=== PATIENT | male | born 1970 | race Caucasian/White ===

== ENCOUNTER 2024-10-04 00:51 | Day surgery (SDC) | payer OTHER, SELFPAY ==
[2024-09-20 13:37] VITALS: BMI 27.5
--- OUTSIDE RECORDS SUMMARY | 2024-10-04 00:55 | XMS_ITS | Clinical Summary ---
Author Organization [facility] [employer] Address [address] [place] [address] Care Team Providers Care Fish Egg Packer Name Role Phone Pietro Gonsalez MD Primary Care Provider [phone] Source Comments [facility] [employer],non-owned Affiliates and Associated Physician Practices is amultiple site organization consisting of ambulatory clinics and hospital sitesin [place], [place], [place] and [place]. This disclosure is being madepursuant to the Care Everywhere program and may not contain all information available regarding this patient. Last updated 18.[facility] Medications * Be aware that medications may not be up to date on this document. Alwaysverify current medications with the patient. Medication Sig Dispensed Refills Start Date End Date Status albuterol (PROVENTIL) 2 MG tablet Take by mouth. 07/27/2017 Active Family History Medical History Relation Name Comments Diabetes - Type 2 Paternal Grandmother Relation Name Status Comments Paternal Grandmother Social History Tobacco Use Types Packs/Day Years Used Date Smoking Tobacco: Former Cigarettes Q uit: 08/22/2002 Smokeless Tobacco: Never Alcohol Use Standard Drinks/Week Comments No 0 (1 standard drink = 0.6 oz pur e alcohol) Sex and Gender Information Value Date Recorded Sex Assigned at Not on file Gender Identity Not on file Sexual Orientation Not on file Last Filed Vital Signs Vital Sign Reading Time Taken Comments Blood Pressure 171/87 07/27/2017 9:33 AM BAR PORTER Pulse 84 07/27/2017 9:33 AM BAR PORTER Temperature 37.1 C (98.7 F) 07/27/2017 9:33 AM BAR PORTER Respiratory Rate 18 07/27/2017 9:33 AM BAR PORTER Oxygen Saturation 100% 07/27/2017 9:33 AM BAR PORTER Inhaled Oxygen Concentration - - Weight 109.3 kg (241 lb) 07/27/2017 9:33 AM BAR PORTER Height 190.5 cm (6' 3 ) 07/27/2017 9:33 AM BAR PORTER Body Mass Index 30.12 07/27/2017 9:33 AM BAR PORTER Plan of Treatment Health Maintenance Due Date Last Done Comments COLOGUARD (AGES 45-75) - COL ON CA SCREENING 1970 COLON MONITORING 1970 COLONOSCOPY - COLON CA SCREENING 1970 CT COLONOGRAPHY - COLON CA SCREENING 1970 Colorectal Cancer Screening 1970 FIT - COLON CA SCREENING 1970 FLEX SIG - COLON CA SCREENING 1970 LIPID TESTING 1970 HIV SCREENING 1985 HEPATITIS C SCREENING 02/28/1988 DTAP/TDAP/TD VACCINES (1 - Tdap) 1989 HEPATITIS B VACCINE (1 of 3 - 19+ 3-dose series) 1989 PNEUMOCOCCAL VACCINE 50+ (1 of 1 - PCV) 2020 ZOSTER VACCINE (1 of 2) 2020 COVID-19 VACCINE (1 - 2023-2 5 season) 2024 INFLUENZA VACCINE (#1) 2024 DEPRESSION SCREENING 08/22/2024 HIB VACCINE Aged Out No longer eligi ble based on patient's age to complete this topic HPV VACCINE Aged Out No longer eligi ble based on patient's age to complete this topic MENINGOCOCCAL (Group B) VACCINE Aged Out No longer eligible based on patient's age to complete this topic MENINGOCOCCAL VACCINE Aged Out No lui myrna eligible based on patient's age to complete this topic PNEUMOCOCCAL VACCINE Aged Out No long er eligible based on patient's age to complete this topic Care Teams Fish Egg Packer Relationship Specialty Start Date End Date Pietro Gonsalez MD [address] [place] [address] PCP - General 07/07/17
--- OUTSIDE RECORDS SUMMARY | 2024-10-04 00:55 | XMS_ITS | Patient Health Summary ---
Author Organization [facility] [employer] Address [address] [place] [address] Care Team Providers Care Water Pumping Station Engineer Name Role Phone Pietro Gonsalez MD Primary Care Provider [phone] Note from [facility],non-owned Affiliates and Associated Physician Practices is amultiple site organization consisting of ambulatory clinics and hospital sitesin [place], [place], [place] and [place]. This disclosure is being madepursuant to the Care Everywhere program and may not contain all information available regarding this patient. Last updated 18.[facility] [employer] Medications * Be aware that medications may not be up to date on this document. Alwaysverify current medications with the patient. * albuterol (PROVENTIL) 2 MG tablet(Started 07/27/2017) Take by mouth. Social History Tobacco Use Types Packs/Day Years [...] Comments Blood Pressure 171/87 07/27/2017 9:33 AM PROFESSOR OF THEATER Pulse 84 07/27/2017 9:33 AM PROFESSOR OF THEATER Temperature 37.1 C (98.7 F) 07/27/2017 9:33 AM PROFESSOR OF THEATER Respiratory Rate 18 07/27/2017 9:33 AM PROFESSOR OF THEATER Oxygen Saturation 100% 07/27/2017 9:33 AM PROFESSOR OF THEATER Inhaled Oxygen Concentration - - Weight 109.3 kg (241 lb) 07/27/2017 9:33 AM PROFESSOR OF THEATER Height 190.5 cm (6' 3 ) 07/27/2017 9:33 AM PROFESSOR OF THEATER Body Mass Index 30.12 07/27/2017 9:33 AM PROFESSOR OF THEATER Care Teams Water Pumping Station Engineer Relationship Specialty Start Date End Date Pietro Gonsalez MD [address] [place] [address] PCP - General 07/07/17
--- OUTSIDE RECORDS SUMMARY | 2024-10-04 00:55 | XMS_ITS | Clinical Summary ---
Author Organization [facility] Address [address] [place] [id number] Care Team Providers Care Director Of Aviation Name Role Phone Unavailable Primary Care Provider Unavailabl e Social History Tobacco Use Types Packs/Day Years Used Date Smoking Tobacco: Never Assessed Sex and Gender Information Value Date Recorded Sex Assigned at Not on file Legal Sex Male 7:06 PM CDT Gender Identity Not on file Sexual Orientation Not on file Plan of Treatment Health Maintenance Due Date Last Done Comments Colorectal Cancer Screening Colonoscopy (10 Years) 1970 Annual Physical 1973 Hepatitis C 1988 DTaP, Tdap and Td Vaccines ( 1 - Tdap) 1989 Hepatitis B Vaccines (1 of 3 - 19+ 3-dose series) 1989 Zoster Vaccines (1 of 2) 2020 COVID-19 Vaccine (2023-2 5 season) 2024 Influenza Adult (#1) 2024 Meningococcal B Vaccine Aged Out No l onger eligible based on patient's age to complete this topic Meningococcal Vaccine Aged Out No lui myrna eligible based on patient's age to complete this topic Pneumococcal Vaccine: Pediat rics (0 to 5 Years) and At-Risk Patients (6 to 64 Years) Aged Out No longer eligible b ased on patient's age to complete this topic RSV Immunizations Under 20 Months Aged Out No longer eligible based on patient's age to complete this topic
--- OUTSIDE RECORDS SUMMARY | 2024-10-04 00:55 | XMS_ITS | Referral Summary ---
Author Organization [facility] [employer] Address [address] [place] [address] Care Team Providers Care Stopboard Assembler Name Role Phone Pietro Gonsalez MD Primary Care Provider [phone] Source Comments [facility] [employer],non-owned Affiliates and Associated Physician Practices is amultiple site organization consisting of ambulatory clinics and hospital sitesin [place], [place], [place] and [place]. This disclosure is being madepursuant to the Care Everywhere program and may not contain all information available regarding this patient. Last updated 18.[facility] [employer] Medications * Be aware that medications may not be up to date on this document. Alwaysverify current medications with the patient. Medication Sig Dispensed Refills Start Date End Date Status albuterol (PROVENTIL) 2 MG tablet Take by mouth. 07/27/2017 Active Social History Tobacco Use Types Packs/Day Years [...] Comments Blood Pressure 171/87 07/27/2017 9:33 AM APARTMENT MAINTENANCE SUPERVISOR Pulse 84 07/27/2017 9:33 AM APARTMENT MAINTENANCE SUPERVISOR Temperature 37.1 C (98.7 F) 07/27/2017 9:33 AM APARTMENT MAINTENANCE SUPERVISOR Respiratory Rate 18 07/27/2017 9:33 AM APARTMENT MAINTENANCE SUPERVISOR Oxygen Saturation 100% 07/27/2017 9:33 AM APARTMENT MAINTENANCE SUPERVISOR Inhaled Oxygen Concentration - - Weight 109.3 kg (241 lb) 07/27/2017 9:33 AM APARTMENT MAINTENANCE SUPERVISOR Height 190.5 cm (6' 3 ) 07/27/2017 9:33 AM APARTMENT MAINTENANCE SUPERVISOR Body Mass Index 30.12 07/27/2017 9:33 AM APARTMENT MAINTENANCE SUPERVISOR Plan of Treatment Not on file Care Teams Stopboard Assembler Relationship Specialty Start Date End Date Pietro Gonsalez MD [address] [place] [address] PCP - General 07/07/17
--- OUTSIDE RECORDS SUMMARY | 2024-10-04 00:55 | XMS_ITS | Continuity of Care Document ---
Author Name [facility] Organization [facility] Care Team Providers Care Venereal Disease Investigator Name Role Phone [facility] Unavailable Unavailable Problems Combined list of problems from Department of Defense and Veterans Affairs facilities. It does not include entries that were removed or entered in error. Problem Status Onset Date Problem Type Date of Resolution Comments Source Exercise induced bronchospasm Active 02/29/2024 Diagnosis 8224R-126 MDG [place] hypertension Active 02/29/2024 Diagnosis 8224R-126 MDG Exercise induced bronchospasm Active Condition 8224R-126 MDG [place] hypertension Active Condition 8224R-126 MDG ASSESSMENT, PRE-DEPLOYMENT, DOCUMENTED ON [id number] Active Condition DoD visit for: services physical Inactive Condition DoD visit for: services physical pre-deployment Active Condition DoD Medications Combined list of outpatient medications from Department of Defense and Veterans Affairs facilities.Medications provided include 1) outpatient medications from the last 15 months, and 2) patient-reported medications. Medication Details Route Status Patient Instructions Prescription Expires Prescription Number Last Dispense Date Ordering Provider Order Date Order Qty Source Albuterol (Eqv-ProAir HFA) 90 mcg/inh inhalation aerosol 1 puff(s), Inhale, every 6 hr, PRN congesti on, # 8.5 g, 0 total refill(s ), Acute, Other Reason (Rx) Inhala tion (breat he in) Ordered 03/01/2025 8.5 8224R -1 26 MDG Allergies, Adverse Reactions, Alerts Combined list of allergies from Department of Defense and Veterans Affairs facilities. It does not include entries that were removed or entered in error. Substance Category Reaction Severity Reaction type Status Date Reported Comments Source No Known Allergies Drug allergy (disorder) active 05/03/2018 [employer] [employer] Immunizations Combined list of available immunizations from the Department of Defense and Veterans Affairs facilities. Immunization Series Date Given Administered By Site Reaction Lot Number CVX Code Drug Door Repairman Status Comments Source influenza, injectable, quadrivalent- pf 2020 [id number] 150 NICO ne complet ed influenza , injectabl e, quadrival ent-pf 06/27/21 Given Ambulat ory Pharmac y Influenza, injectable, quadrivalent, preservative free 1 2020 [id number] Influ[facility] , injectabl e, quadrival ent, preservat donna free DoD COVID Vaccine Moderna 2020 zzRig ht Arm [id number] 207 complet ed COVID Vaccine Moderna 10/30/20 Given Ambulat ory Pharmac y SARS-COV-2 (COVID-19) vaccine, mRNA, spike protein, LNP, preservative free, 100 mcg or 50 mcg dose 2 2020 DANIELLA COX [id number] 207 Moderna US, Inc. (MOD) complet ed SARS-COV- 2 (COVID-19 ) vaccine, mRNA, spike protein, LNP, preservat donna free, 100 mcg or 50 mcg dose DoD COVID Vaccine Moderna 2020 zzRig ht Arm [id number] 207 complet ed COVID Vaccine Moderna 10/02/20 Given Ambulat ory Pharmac y SARS-COV-2 (COVID-19) vaccine, mRNA, spike protein, LNP, preservative free, 100 mcg or 50 mcg dose 1 2020 IDRIS SALAS N [id number] 207 Moderna US, Inc. (MOD) complet ed SARS-COV- 2 (COVID-19 ) vaccine, mRNA, spike protein, LNP, preservat donna free, 100 mcg or 50 mcg dose DoD influenza, injectable, quadrivalent- pf 2019 [id number] 150 Seqirus complet ed influenza , injectabl e, quadrival ent-pf 07/26/20 Given Ambulat ory Pharmac y Influenza, injectable, quadrivalent, preservative free 1 2019 [id number] 150 Seqirus (SEQ) complet ed Influenza , injectabl e, quadrival ent, preservat donna free DoD poliovirus vaccine, inactivated 2019 10 sanofi pasteur complet ed polioviru s vaccine, inactivat ed 09/01/19 Given Ambulat ory Pharmac y poliovirus vaccine, inactivated 2 2019 10 Sanofi Pasteur (PMC) complet ed polioviru s vaccine, inactivat ed DoD influenza, injectable, quadrivalent 2018 [id number] 158 Seqirus complet ed influenza , injectabl e, quadrival ent 05/26/19 Given Ambulat ory Pharmac y anthrax vaccine 2018 [id number] Emergent Biosolutions complet ed anthrax vaccine 05/26/19 Given Ambulat ory Pharmac y anthrax vaccine 7 2018 [id number] 24 [employer] [place] (MIP) complet ed anthrax vaccine DoD influenza, injectable, quadrivalent, contains preservative 22 2018 [id number] 158 Seqirus (SEQ) complet ed influenza , injectabl e, quadrival ent, contains preservat donna DoD influenza, injectable, quadrivalent 2017 [id number] [id number] 158 Seqirus complet ed influenza , injectabl e, quadrival ent 06/03/18 Given Ambulat ory Pharmac y influenza, injectable, quadrivalent, contains preservative 1 2017 [id number] [id number] 158 Seqirus (SEQ) complet ed influenza , injectabl e, quadrival ent, contains preservat donna DoD typhoid Vi capsular polysaccharid e vac 2017 [id number] 101 sanofi pasteur complet ed typhoid Vi capsular polysacch aride vac 01/21/18 Given Ambulat ory Pharmac y typhoid Vi capsular polysaccharid e vaccine 1 2017 [id number] 101 Sanofi Pasteur (PMC) complet ed typhoid Vi capsular polysacch aride vaccine DoD influenza, injectable, quadrivalent- pf 2016 [id number] 150 GlaxoSmithKli ne complet ed influenza , injectabl e, quadrival ent-pf 05/28/17 Given Ambulat ory Pharmac y Influenza, injectable, quadrivalent, preservative free 20 2016 [id number] 150 SmithKline (SKB) complet ed Influenza , injectabl e, quadrival ent, preservat donna free DoD influenza, seasonal, injectable-pf 2015 [id number] 140 Seqirus complet ed influenza , seasonal, injectabl e-pf 06/26/16 Given Ambulat ory Pharmac y Influenza, seasonal, injectable, preservative free 1 2015 [id number] 140 Seqirus (SEQ) comple t ed Influenza , seasonal, injectabl e, preservat donna free DoD influenza, live, intranasal,qu adrivalent 2014 [id number] 149 Medimmune Inc comple t ed influenza , live, intranasa l,quadriv alent 07/26/15 Given Ambulat ory Pharmac y influenza, live, intranasal, quadrivalent 18 2014 [id number] 149 MedImmune, Inc. (MED) complet ed influenza , live, intranasa l, quadrival ent DoD influenza, live, intranasal,qu adrivalent 2013 [id number] 149 Medimmune Inc comple t ed influenza , live, intranasa l,quadriv alent 06/22/14 Given Ambulat ory Pharmac y influenza, live, intranasal, quadrivalent 17 2013 [id number] 149 MedImmune, Inc. (MED) complet ed influenza , live, intranasa l, quadrival ent DoD measles/mumps /rubella virus vaccine 2013 [id number] 03 Merck & Company Inc complet ed measles/m umps/rube lla virus vaccine 10/20/13 Given Ambulat ory Pharmac y measles, mumps and rubella virus vaccine 2 2013 [id number] 03 Merck (MSD) complet ed measles, mumps and rubella virus vaccine DoD influenza, live, intranasal,qu adrivalent 2012 [id number] 149 Medimmune Inc comple t ed influenza , live, intranasa l,quadriv alent 06/23/13 Given Ambulat ory Pharmac y influenza, live, intranasal, quadrivalent 16 2012 [id number] 149 MedImmune, Inc. (MED) complet ed influenza , live, intranasa l, quadrival ent DoD influenza virus vaccine, live 2011 [id number] 111 Medimmune Inc comple t ed influenza virus vaccine, live 06/10/12 Given Ambulat ory Pharmac y influenza virus vaccine, live, attenuated, for intranasal use 1 2011 [id number] 111 MedImmune, Inc. (MED) complet ed influenza virus vaccine, live, attenuate d, for intranasa l use DoD tetanus, diphtheria, acellular pertu is 2011 [id number] 115 sanofi pasteur complet ed tetanus, diphtheri a, acellular pertussis 12/11/11 Given Ambulat ory Pharmac y hepatitis B adult vaccine 2011 [id number] 4AA 43 GlaxoSmithKli ne complet ed hepatitis B adult vaccine 12/11/11 Given Ambulat ory Pharmac y hepatitis B vaccine, adult dosage 3 2011 [id number] 4AA 43 Smithine (SKB) complet ed hepatitis B vaccine, adult dosage DoD tetanus toxoid, reduced diphtheria toxoid, and acellular pertu is vaccine, adsorbed 0 2011 [id number] 115 Sanofi Pasteur (PMC) complet ed tetanus toxoid, reduced diphtheri a toxoid, and acellular pertussis vaccine, adsorbed DoD hepatitis B adult vaccine 2010 [id number] 6AA 43 GlaxoSmithKli ne complet ed hepatitis B adult vaccine 06/16/11 Given Ambulat ory Pharmac y hepatitis B vaccine, adult dosage 2 2010 [id number] 6AA 43 Smithine (SKB) complet ed hepatitis B vaccine, adult dosage DoD hepatitis B adult vaccine 2010 [id number] 8AA 43 GlaxoSmithKli ne complet ed hepatitis B adult vaccine 05/17/11 Given Ambulat ory Pharmac y influenza, seasonal, injectable 2010 [id number] [id number] 141 CSL Behring complet ed influenza , seasonal, injectabl e 05/17/11 Given Ambulat ory Pharmac y anthrax vaccine 2010 [id number] 24 Emergent Biosolutions complet ed anthrax vaccine 05/17/11 Given Ambulat ory Pharmac y anthrax vaccine 6 2010 [id number] 24 [employer] [place] ([facility]) complet ed anthrax vaccine DoD hepatitis B vaccine, adult dosage 1 2010 [id number] 8AA 43 Smithine (SKB) complet ed hepatitis B vaccine, adult dosage DoD Influenza, seasonal, injectable 1 2010 [id number] 141 [email or web address] Inc. (CSL) complet ed Influenza , seasonal, injectabl e DoD influenza virus vaccine, live 2009 [id number] 111 Tw[employer] Inc comple t ed influenza virus vaccine, live 06/27/10 Given Ambulat ory Pharmac y influenza virus vaccine, live, attenuated, for intranasal use 1 2009 [id number] 111 MedImmune, Inc. (MED) complet ed influenza virus vaccine, live, attenuate d, for intranasa l use DoD typhoid Vi capsular polysaccharid e vac 2009 [id number] 101 sanofi pasteur complet ed typhoid Vi capsular polysacch aride vac 11/30/09 Given Ambulat ory Pharmac y typhoid Vi capsular polysaccharid e vaccine 1 2009 D0191 101 Sanofi Pasteur (PMC) complet ed typhoid Vi capsular polysacch aride vaccine DoD Novel influenza-H1N 1-09, injectable 2009 [id number] 127 complet ed Novel influenza -M9H3-47, injectabl e 08/31/09 Given Ambulat ory Pharmac y Novel influenza-H1N 1-09, injectable 1 2009 [id number] 127 Transcribed (TRS) complet ed Novel influenza -G8Q3-55, injectabl e DoD influenza virus vaccine, live 2008 [id number] 111 [employer] Inc comple t ed influenza virus vaccine, live 06/28/09 Given Ambulat ory Pharmac y influenza virus vaccine, live, attenuated, for intranasal use 1 2008 [id number] 111 Spiceworks, Inc. (MED) complet ed influenza virus vaccine, live, attenuate d, for intranasa l use DoD influenza virus vaccine,split 2008 [id number] 15 GlaxoSmithKli ne complet ed influenza virus vaccine,s plit 09/01/08 Given Ambulat ory Pharmac y influenza virus vaccine, split virus (incl. purified surface antigen)-reti red CODE 1 2008 [id number] 7AA 15 SmithKline (SKB) complet ed influenza virus vaccine, split virus (incl. purified surface antigen)- retired CODE DoD typhoid Vi capsular polysaccharid e vac 2007 [id number] 101 sanofi pasteur complet ed typhoid Vi capsular polysacch aride vac 11/22/07 Given Ambulat ory Pharmac y typhoid Vi capsular polysaccharid e vaccine 1 2007 [id number] 101 Sanofi Pasteur (PMC) complet ed typhoid Vi capsular polysacch aride vaccine DoD influenza virus vaccine, live 2006 [id number] 111 [employer] Inc comple t ed influenza virus vaccine, live 07/30/07 Given Ambulat ory Pharmac y influenza virus vaccine, live, attenuated, for intranasal use 1 2006 [id number] 111 Spiceworks, Inc. (MED) complet ed influenza virus vaccine, live, attenuate d, for intranasa l use DoD influenza virus vaccine,split 2005 [id number] [id number] 15 sanofi pasteur complet ed influenza virus vaccine,s plit 07/30/06 Given Ambulat ory Pharmac y influenza virus vaccine, split virus (incl. purified surface antigen)-reti red CODE 1 2005 [id number] [id number] 15 Sanofi Pasteur ([facility]) complet ed influenza virus vaccine, split virus (incl. purified surface antigen)- retired CODE DoD varicella virus vaccine 0 2005 21 () Not Given varicella virus vaccine DoD vaccinia (smallpox) vaccine 2005 [id number] 75 [employer] complet ed vaccinia (smallpox ) vaccine 06/13/06 Given Ambulat ory Pharmac y vaccinia (smallpox) vaccine 1 2005 [id number] 75 [facility] ([facility]) complet ed vaccinia (smallpox ) vaccine DoD typhoid vaccine, parenteral 2005 [id number] 41 sanofi pasteur complet ed typhoid vaccine, parentera l 11/27/05 Given Ambulat ory Pharmac y typhoid vaccine, parenteral, other than acetone-kille d, dried 1 2005 [id number] 41 Sanofi Pasteur ([facility]) complet ed typhoid vaccine, parentera l, other than acetone-k illed, dried DoD influenza virus vaccine,split 2004 [id number] 15 sanofi pasteur complet ed influenza virus vaccine,s plit 07/11/05 Given Ambulat ory Pharmac y influenza virus vaccine, split virus (incl. purified surface antigen)-reti red CODE 1 2004 [id number] 15 Sanofi Pasteur ([facility]) complet ed influenza virus vaccine, split virus (incl. purified surface antigen)- retired CODE DoD anthrax vaccine 2003 [id number] 24 Emergent Biosolutions complet ed anthrax vaccine 04/16/04 Given Ambulat ory Pharmac y anthrax vaccine 6 2003 [id number] 24 [facility] [facility] ([facility]) complet ed anthrax vaccine DoD typhoid vaccine, parenteral 2003 [id number] 41 sanofi pasteur complet ed typhoid vaccine, parentera l 12/07/03 Given Ambulat ory Pharmac y typhoid vaccine, parenteral, other than acetone-kille d, dried 0 2003 [id number] 41 Sanofi Pasteur ([facility]) complet ed typhoid vaccine, parentera l, other than acetone-k illed, dried DoD anthrax vaccine 2003 [id number] 24 [employer] complet ed anthrax vaccine 10/12/03 Given Ambulat ory Pharmac y anthrax vaccine 5 2003 [id number] 24 [facility] complet ed anthrax vaccine DoD influenza virus vaccine, whole virus 2002 [id number] 16 Nov[employer]is Pharmaceutica ls complet ed influenza virus vaccine, whole virus 06/14/03 Given Ambulat ory Pharmac y tetanus-dipht h toxoids (Td) adult/adol 2002 [id number] 09 sanofi pasteur complet ed tetanus-d iphth toxoids (Td) adult/ado l 06/14/03 Given Ambulat ory Pharmac y tetanus and diphtheria toxoids, adsorbed, preservative free, for adult use (2 Lf of tetanus toxoid and 2 Lf of diphtheria toxoid) 0 2002 [id number] 09 Sanofi Pasteur ([facility]) complet ed tetanus and diphtheri a toxoids, adsorbed, preservat donna free, for adult use (2 Lf of tetanus toxoid and 2 Lf of diphtheri a toxoid) DoD influenza virus vaccine, whole virus 0 2002 [id number] 16 [employer] (PWJ) complet ed influenza virus vaccine, whole virus DoD anthrax vaccine 2002 [id number] Emer[employer] complet ed anthrax vaccine 03/09/03 Given Ambulat ory Pharmac y anthrax vaccine 4 2002 [id number] 24 [facility] complet ed anthrax vaccine DoD anthrax vaccine 2002 [id number] 24 [employer] complet ed anthrax vaccine 09/22/02 Given Ambulat ory Pharmac y anthrax vaccine 3 2002 [id number] 24 [facility] complet ed anthrax vaccine DoD tuberculin purified protein derivative 2002 [id number] 96 sanofi pasteur complet ed tuberculi n purified protein derivativ e 09/01/02 Given Ambulat ory Pharmac y anthrax vaccine 2001 [id number] 24 [employer] complet ed anthrax vaccine 08/01/02 Given Ambulat ory Pharmac y anthrax vaccine 2 2001 [id number] 24 [employer] [place] ([facility]) complet ed anthrax vaccine DoD anthrax vaccine 2001 [id number] 24 [employer] complet ed anthrax vaccine 07/18/02 Given Ambulat ory Pharmac y anthrax vaccine 1 2001 [id number] 24 [employer] [place] ([facility]) complet ed anthrax vaccine DoD influenza virus vaccine, whole virus 2001 [id number] 16 sanofi pasteur complet ed influenza virus vaccine, whole virus 06/08/02 Given Ambulat ory Pharmac y influenza virus vaccine, whole virus 0 2001 [id number] 16 Sanofi Pasteur (PMC) complet ed influenza virus vaccine, whole virus DoD typhoid vaccine, parenteral 2001 [id number] 41 sanofi pasteur complet ed typhoid vaccine, parentera l 12/02/01 Given Ambulat ory Pharmac y typhoid vaccine, parenteral, other than acetone-kille d, dried 0 2001 [id number] 41 Sanofi Pasteur (PMC) complet ed typhoid vaccine, parentera l, other than acetone-k illed, dried DoD tuberculin purified protein derivative 2001 [id number] 96 sanofi pasteur complet ed tuberculi n purified protein derivativ e 09/02/01 Given Ambulat ory Pharmac y influenza virus vaccine, whole virus 2000 [id number] 16 sanofi pasteur complet ed influenza virus vaccine, whole virus 07/29/01 Given Ambulat ory Pharmac y influenza virus vaccine, whole virus 0 2000 [id number] 16 Sanofi Pasteur (PMC) complet ed influenza virus vaccine, whole virus DoD yellow fever vaccine 2000 [id number] 37 sanofi pasteur complet ed yellow fever vaccine 06/24/01 Given Ambulat ory Pharmac y yellow fever vaccine 0 2000 [id number] 37 Sanofi Pasteur (PMC) complet ed yellow fever vaccine DoD tuberculin purified protein derivative 1999 [id number] 96 [facility] complet ed tuberculi n purified protein derivativ e 07/30/00 Given Ambulat ory Pharmac y influenza virus vaccine, whole virus [id number] [facility] complet ed influenza virus vaccine, whole virus 07/30/00 Given Ambulat ory Pharmac y influenza virus vaccine, whole virus 0 1999 [id number] 16 [facility] ([facility]) complet ed influenza virus vaccine, whole virus DoD influenza virus vaccine, whole virus 1998 [id number] 16 [facility] complet ed influenza virus vaccine, whole virus 08/02/99 Given Ambulat ory Pharmac y influenza virus vaccine, whole virus 0 1998 [id number] 16 [facility] (CON) complet ed influenza virus vaccine, whole virus DoD tuberculin purified protein derivative 1998 [id number] 96 [facility] complet ed tuberculi n purified protein derivativ e 11/28/98 Given Ambulat ory Pharmac y hepatitis A adult vaccine 1998 [id number] 52 Merck & Company Inc complet ed hepatitis A adult vaccine 09/27/98 Given Ambulat ory Pharmac y hepatitis A vaccine, adult dosage 2 1998 [id number] 52 Merck (MSD) complet ed hepatitis A vaccine, adult dosage DoD influenza virus vaccine, whole virus [id number] 16 [facility] complet ed influenza virus vaccine, whole virus 05/23/98 Given Ambulat ory Pharmac y influenza virus vaccine, whole virus 0 [id number] 16 [facility] (CON) complet ed influenza virus vaccine, whole virus DoD hepatitis A adult vaccine 1997 [id number] 52 Merck & Company Inc complet ed hepatitis A adult vaccine 01/20/98 Given Ambulat ory Pharmac y hepatitis A vaccine, adult dosage 1 1997 [id number] 52 Merck (MSD) complet ed hepatitis A vaccine, adult dosage DoD influenza virus vaccine, whole virus 1996 16 complet ed influenza virus vaccine, whole virus 06/22/97 Given Ambulat ory Pharmac y influenza virus vaccine, whole virus 0 1996 16 () complet ed influenza virus vaccine, whole virus DoD typhoid vaccine, live, oral 1996 [id number]. [id number] 25 [employer] [place] complet ed typhoid vaccine, live, oral 11/20/96 Given Ambulat ory Pharmac y typhoid vaccine, live, oral 0 1996 901445. 1B 25 [facility] (SI) complet ed typhoid vaccine, live, oral DoD tetanus-dipht h toxoids (Td) adult/adol 1993 09 complet ed tetanus-d iphth toxoids (Td) adult/ado l 11/20/93 Given Ambulat ory Pharmac y typhoid, parenteral, AKD 1993 53 complet ed typhoid, parentera l, AKD 11/20/93 Given Ambulat ory Pharmac y tetanus and diphtheria toxoids, adsorbed, preservative free, for adult use (2 Lf of tetanus toxoid and 2 Lf of diphtheria toxoid) 0 1993 09 () complet ed tetanus and diphtheri a toxoids, adsorbed, preservat donna free, for adult use (2 Lf of tetanus toxoid and 2 Lf of diphtheri a toxoid) DoD typhoid vaccine, parenteral, acetone-kille d, dried ([place] ) 2 1993 53 () complet ed typhoid vaccine, parentera l, acetone-k illed, dried ([place] ) DoD yellow fever vaccine 1990 37 complet ed yellow fever vaccine 07/22/91 Given Ambulat ory Pharmac y yellow fever vaccine 0 1990 37 () complet ed yellow fever vaccine DoD measles/mumps /rubella virus vaccine 1990 03 complet ed measles/m umps/rube lla virus vaccine 10/20/90 Given Ambulat ory Pharmac y poliovirus vaccine, live, oral 1990 02 complet ed polioviru s vaccine, live, oral 10/20/90 Given Ambulat ory Pharmac y trivalent poliovirus vaccine, live, oral 0 1990 02 () complet ed trivalent polioviru s vaccine, live, oral DoD measles, mumps and rubella virus vaccine 0 1990 03 Transcribed (TRS) complet ed measles, mumps and rubella virus vaccine DoD Results Combined list of recent chemistry, hematology and other laboratory results from Department of Defense and Veterans Affairs, ranging from 15 months to all on record, depending upon the facility. Order Name Results Value Reference Range Date Interpretation Specimen Comments Source Infectiou s Disease HIV-1/O/2 Non-Reac tive 1 (07/28/24 10:51 AM) 12/07 /2024 N Interpretiv e Data: INTERPRETAT ION: This method is a screening procedure for the detection of HIV p24 Antigen and Antibodies to HIV-1, including Group O, and/or HIV-2. NON-REACTIV E: HIV-1 antigen and HIV-1 / HIV-2 antibodies were not detected. No laboratory evidence of HIV infection. A negative test result does not exclude the possibility of exposure to or infection with HIV. HIV antibodies and/or p24 antigen may be undetectabl e in some stages of the infection and in some clinical conditions. If acute HIV infection is suspected, consider submitting another specimen to a reference laboratory for HIV-1 RNA. SCREEN REACTIVE - CONFIRMATIO N TO FOLLOW: Possible presence of HIV-1antibo dies, HIV-2 antibodies and/or HIV-1 p24 antigen. Specimen will reflex to the confirmatio n testing that fulfills the Center for Disease Control and Prevention' s HIV diagnostic algorithm. Refer to [facility] Lab Guide for additional information : [email or web address] x Testing performed by Mikayla araiza [id number] Miscellan [employer]ous Sendouts Repository Sample Received (07/28/24 10:51 AM) 07/28 N [employer] Vital Signs Combined list of inpatient and outpatient Vital Signs from Department of Defense and Veterans Affairs, ranging from 12 months to all on record, depending upon the facility. Vital Sign Value Date Comments Source Systolic Blood Pressure 118 mm[Hg] 02/27/2024 18:17:00 8224R-126 MDG Diastolic Blood Pressure 72 mm[Hg] 02/27/2024 18:17:00 8224R-126 MDG BP Site Left arm 02/27/2024 18:17:00 8224R -126 MDG Mean Arterial Pressure, Calc 87 mm[Hg] 02/27/2024 18:17:0 0 8224R-126 MDG Peripheral Pulse Rate 84 bpm 02/29/2024 14:35:00 8224R-126 MDG Respiratory Rate 12 br/min 02/29/2024 14:35:00 8224R-126 MDG Encounters Combined list of: 1) Encounters from Department of Veterans Affairs facilities going backup to the last 18 months, not all VA inpatient encounters are included; 2) Encounters from the Department of Defense facilities going backup to 280 months. Location Location Details Encounter Type Encounter Number Reason For Visit Attending Provider ADM Date DC Date Status Disposition Source [facility] [employer] [place] [place] [facility]) OUTPATIENT [id number] SHAHAB must show orders GAMALIELQUINNARETHA Jaimes Joe 05/17 Released w/o Limitations [facility] [employer] ([facility] [place]) Theater Facility OUTPATIENT [id number] 06/16 Released w/o Limitations Theater Facilit y [address] [place] [address] [employer] ([facility] [place] OUTPATIENT [id number] LOD f/u for acute bronchi tis/618 .980.21 42 KELLEY BANERJEE 04/12 Released w/o Limitations [address] [place] [address] [employer] ([facility] [place] [facility] [address] [place] [address] [employer] ([facility] [facility]) OUTPATIENT [id number] JORDAN ALFRED 05/04 Released w/o Limitations [address] [place] [address] [employer] ([facility]O ldclini c) [address] [place] [address] [employer] ([facility]) OUTPATIENT [id number] ALVERTO BELLO 05/28 Released w/o Limitations [address] [place] [address] [employer] ([facility]O ldclini c) [address] [place] [address] [employer] ([facility]) OUTPATIENT [id number] Notes Entered by: RICHARD BLAKELY 28 May 2017 1000 ------- ------- ------- ------- -- F/up for chronic asthma LUIGI BLISS 05/28 Released w/o Limitations [address] [place] [address] [employer] ([facility]O ldclini c) [address] [place] [address] [employer] ([facility]) OUTPATIENT [id number] KELLEE HURLEY 11/27 Released w/o Limitations [address] [place] [address] [employer] ([facility]O ldclini c) [address] [place] [address] [employer] ([facility]) OUTPATIENT [id number] blood pressur e follow up KAYLA PENA 01/21 Released w/o Limitations [facility] [place] ([facility]O ldclini c) [address] [place] [address])([facility]) OUTPATIENT [id number] Notes Entered by: CHRISTOPHER SWARTZ 03 Jun 2018 0912 ------- ------- ------- ------- -- Fitness Exempti on LUIGI BLISS Reyes 06/03 Released w/o Limitations [address] [place] [address] Group [employer] [facility] ([facility]) [address] [place] [address] ([facility]) OUTPATIENT [id number] Notes Entered by: Leah AMBRIZ 24 Dec 2018 1425 ------- ------- ------- ------- -- BON Block 12/24 Released w/o Limitations [address] [place] [address] ([facility]) [address] [place] [address])([facility]) TELE CONSULT [id number] Notes Entered by: IAM BURGESS 11 May 2019 1150 ------- ------- ------- ------- -- ALC JAMIL Christine 05/11 Other Not Elsewhere Classified [address] [place] [address] [employer] [facility] ([facility]) [address] [place] [address] [employer] [facility]) OUTPATIENT [id number] Notes Entered by: LACI FRAGOSO 26 May 2019 0933 ------- ------- ------- ------- -- Fitness Exempti on MOMO CORTEZ 05/26 Released w/o Limitations [address] [place] [address] Group [employer] [facility] ([facility] [address] [place] [address] ([facility]) OUTPATIENT [id number] 2 ALC renewal JORDAN ALFRED 06/23 Released w/o Limitations [facility] Medical Group [employer] ([facility]) [address] [place] [address] Group [employer] [facility]126 [facility]) TELE CONSULT [id number] Notes Entered by: IAM BURGESS 18 Jul 2019 1115 ------- ------- ------- ------- -- JAMIL ROJAS 07/18 Other Not Elsewhere Classified [facility] Medical Group [employer] ([facility]) [address] [place] [address] [employer] ([facility]126 [facility]) OUTPATIENT [id number] Notes Entered by: ANNIE WELLER 30 Jul 2019 1216 ------- ------- ------- ------- -- [facility] ANNIE WELLER 07/30 Released w/o Limitations [address] [place] [address] Group [employer] [facility]09 16 [facility]) [address] [place] [address] [employer] [facility]) OUTPATIENT [id number] Notes Entered by: ANNIE WELLER 30 Jul 2019 1227 ------- ------- ------- ------- -- ANNIE REYES 07/30 Released w/o Limitations [address] [place] [address] Group [employer] ([facility]09 16 [facility]) [address] [place] [address] Group [employer] B [facility]) TELE CONSULT [id number] Notes Entered by: IAM BURGESS 10 Aug 2019 1917 ------- ------- ------- ------- -- Update JAMIL BURGESS 08/11 Other Not Elsewhere Classified [facility] Medical Group [employer] ([facility] 16 [facility]) [address] [place] [address] [employer] ([facility]126 [facility]) OUTPATIENT [id number] Notes Entered by: CARLTON YARBROUGH 01 Sep 2019 0904 ------- ------- ------- ------- -- ALVERTO Nicholas 09/01 Released w/o Limitations [address] [place] [address])([facility]) [address] [place] [address])([facility]) TELE CONSULT [id number] Notes Entered by: IAM BURGESS 14 Sep 2019 1814 ------- ------- ------- ------- -- JAMIL Yin 09/15 Other Not Elsewhere Classified [address] [place] [address])(09 [facility]) [address] [place] [address])([facility]) TELE CONSULT [id number] Notes Entered by: MIRNA PEREIRA 17 Sep 2019 0854 ------- ------- ------- ------- -- Deploym ent Medical Check-U p/Delac david/[phone] SALLIE RICE 09/17 Other Not Elsewhere Classified [address] [place] [address])([facility]) [address] [place] [address])([facility]) TELE CONSULT [id number] Notes Entered by: JUANY GUILLEN 20 Sep 2019 0948 ------- ------- ------- ------- -- Appt in the next week - Bhavna z - - tsg SALLIE RICE 09/20 Referred for Appointment [address] [place] [address] Group [facility] [place])([facility]) [address] [place] [address])([facility]) OUTPATIENT [id number] 2 f/u hyperte nsion for upcomin g deploym ent OQUENDO, ALRIA OPENA 09/20 Released w/o Limitations [facility] Medical Group [employer] [facility]) [address] [place] [address] Group [employer] B ([facility]126 [facility]) TELE CONSULT [id number] Notes Entered by: IAM BURGESS 20 Sep 2019 1858 ------- ------- ------- ------- -- Update JAMIL BURGESS 09/21 Other Not Elsewhere Classified [facility] Medical Group [employer] [facility]) [address] [place] [address] [employer] [facility]) TELE CONSULT [id number] Notes Entered by: IAM BURGESS 27 Sep 2019 1203 ------- ------- ------- ------- -- Update JAMIL BURGESS 09/27 Other Not Elsewhere Classified [address] [place] [address] Group [facility])( [facility]) [address] [place], [place] [address]B [facility]) TELE CONSULT [id number] BON AMBRIZ 09/[address] [place] [address] [employer] [facility])([facility]) [address] [place] [address])([facility]) TELE CONSULT [id number] 1 Notes Entered by: ANNIE WELLER 12 Oct 2019 1416 ------- ------- ------- ------- -- BIA/ALVERTO BALES 10/[address] [place] [address] Group [employer] [facility] ([facility]09 16 [facility]) [address] [place] [address])([facility] Tm A Ad) OUTPATIENT [id number] Notes Entered by: Renee SILVER 12 Nov 2019 1254 ------- ------- ------- ------- -- Walk in CAITLIN PINEDA 11/11 Released w/o Limitations [facility] Medical Group [employer] ([facility])([facility] Tm A Ad) [address] [place], [place] [address]B [facility])(Fam ilene Med Tm B Non-AD BCC) OUTPATIENT [id number] Notes Entered by: ELAINE STOCKTON 13 Nov 2019 0734 ------- ------- ------- ------- -- walk in bp check #2 CAITLIN PINEDA 11/12 Released w/o Limitations [address] [place] [address] Group [employer] [facility])(F amily Med Tm B Non-AD BCC) [address] [place] [address])(Fam ilene Med Tm B Non-AD BCC) OUTPATIENT [id number] Notes Entered by: ELAINE STOCKTON 14 Nov 2019 0737 ------- ------- ------- ------- -- walk in BP check #3 DECEMBEREMANUEL 11/13 Released w/o Limitations [address] [place] [address] Group [facility] [place])(F amily Med Tm B Non-AD BCC) [address] [place] [address])(Fam ilene Med Tm B Non-AD BCC) OUTPATIENT [id number] 3 Notes Entered by: LULA FLOOD 14 Nov 2019 1017 ------- ------- ------- ------- -- BEATRICE1 DECEMBEREMANUEL 11/13 Released w/o Limitations [address] [place] [address] ([facility])(F amily Med Tm B Non-AD BCC) [address] [place] [address])(126 [facility]) TELE CONSULT [id number] KELLEE HURLEY 07/[address] [place] [address] ([facility] 26[facility]) [address] [place] [address] ([facility]) OUTPATIENT [id number] Notes Entered by: Leah AMBRIZ 26 Jan 2021 1450 ------- ------- ------- ------- -- BON Block 01/26 Released w/o Limitations [address] [place] [address])(09 16 [facility]) [address] [place] [address])(126 [facility]) OUTPATIENT [id number] Notes Entered by: Leah AMBRIZ 17 Aug 2021 1618 ------- ------- ------- ------- -- phaq BON AMBRIZ 08/17 Released w/o Limitations [address] [place] [address])(09 16 [facility]) [address] [place] [address])([facility]) TELE CONSULT [id number] Notes Entered by: IAM BURGESS 26 Aug 2021 1619 ------- ------- ------- ------- -- PHAQ review JAMIL BURGESS 08/26 Other Not Elsewhere Classified [address] [place] [address])([address] [facility]) [address] [place] [address])([facility]) OUTPATIENT [id number] Notes Entered by: Leah AMBRIZ 29 Sep 2022 0856 ------- ------- ------- ------- -- phaq BON AMBRIZ 09/29 Released w/o Limitations [address] [place] [address])(09 16 [facility]) [id number] Clinic [id number] BON APPLE 02/26 Discharge Disposition: Home or Self Care [id number]-[id number] URIEL [id number] [facility] [id number] Exercis e induced broncho spasm,E ssentia l (primar y) hyperte nsion BON APPLE 02/28 Discharge Disposition: Home or Self Care [id number]-1 [id number] URIEL [id number] MD Outpatient [id number] BON APPLE 07/28 Discharge Disposition: Home or Self Care [id number]-1 [id number] URIEL [id number]-[id number] [id number] BON APPLE 09/04 Discharge Disposition: Home or Self Care [id number]-1 26 URIEL Procedures Combined list of: 1) Procedures from Department of Veterans Affairs facilities going back up to thelast 18 months, not all VA non-surgical procedures are included; 2) All procedures from the Department of Defense facilities. Procedure Procedure Type Code Date Perfomer Comments Sourc e No data available for this section Ambulatory Pharmacy BRIEF COMM TECH-BASE SERV,E.G. VIRT CHK-IN,BY PHYS/OTH QUAL HCP,RPT E&M SERV,PROV TO EST PT,NOT ORIG FRM REL E/M SERV PROV W/IN PREV 7DAY NOR LEAD TO E/M SRV/PX W/IN NEXT 24HR/SOON ARSALAN; 5-10 MIN DISC DoD BLOOD PRESSURE MEASURED (CKD)(DM) DoD BLOOD PRESSURE MEASURED (CKD)(DM) DoD TELE ASSESS & MGT SRV PROV QUAL NONPHYS HLTH CARE PRO TO EST PAT,PARENT,GUARD NOT ORIG REL ASSESS & MGT SRV PROV W/IN PREV 7 DAYS NOR LEAD ASSESS & MGT SRV/PX W/IN NXT 24 HR/SOON APT;5-10 MIN MED DIS 020 DoD TELE ASSESS & MGT SRV PROV QUAL NONPHYS HLTH CARE PRO TO EST PAT,PARENT,GUARD NOT ORIG REL ASSESS & MGT SRV PROV W/IN PREV 7 DAYS NOR LEAD ASSESS & MGT SRV/PX W/IN NXT 24 HR/SOON APT;5-10 MIN MED DIS DoD PSYCHOLOGICAL OR NEUROPSYCHOLOGICAL TEST ADMINISTRATION, WITH SINGLE AUTOMATED, STANDARDIZED INSTRUMENT VIA ELECTRONIC PLATFORM, WITH AUTOMATED RESULT ONLY DoD NEUROPSYCHOLOGICAL TESTING (EG, [place] CARD SORTING TEST), ADMINISTERED BY A COMPUTER, WITH QUALIFIED HEALTH PLANT RELIABILITY ENGINEER INTERPRETATION AND REPORT DoD Psychometric Neuropsych Testing Battery Admin By Computer Psychometric Neuropsych Testing Battery Admin By Computer [id number] SCARLETT GOTTLIEB DoD Psychometric Neuropsych Testing Battery Admin By Computer Psychometric Neuropsych Testing Battery Admin By Computer [id number] ANNIE WELLER [facility] Non-Physician Phone Call To Patient/Provider Brief (5-10min) Non-Physician Phone Call To Patient/Provide r Brief (5-10min) [id number] SALLIE RICE DoD A e ment & Intervention Blood Pre ure Measured Assessment & Intervention Blood Pressure Measured 1999F CAITLIN PINEDA 49-year-old [facility] appointment made for Walk in blood pressure check day . Patient here in clinic for day 1 of 3 blood pressure check per primary group care worker. Patient instructed to return to clinic tomorrow for BP Check. Patient advised to go to closest ER for chest pain, headache, and shortness of breath, arm or jaw pain. Patient verbalized understanding . Patient denies any questions or concerns at this time. [facility] Brief communication technology-based service, e.g. virtual check-in, by a physician or other qualified health care profe kacey who can report evaluation and management services, provided to an established patient, not originating from a related E/M service provided within the previous 7 days nor leading to an E/M service or procedure within the next 24 hours or soonest available appointment; 5-10 minutes of medical discu EMANUEL Wagner DoD A e ment & Intervention Blood Pre ure Measured Assessment & Intervention Blood Pressure Measured 1999F CAITLIN PINEDA 49-year-old [facility] appointment made for Walk in blood pressure check day . Patient here in clinic for day 2 of 3 blood pressure check per primary group care worker. Patient instructed to return to clinic tomorrow for BP Check. Patient advised to go to closest ER for chest pain, headache, and shortness of breath, arm or jaw pain. Patient verbalized understanding . Patient denies any questions or concerns at this time. PCM advised patient to bring in a blood pressure log tomorrow to be uploaded into his chart. DoD Social History Combined list of available smoking, tobacco, and other social history from Department of Defense and Veterans Affairs facilities. Social History Type Response Date Comment [facility] e Male 11/27/2021 Ambulatory Pha rmacy Sexual Orientation Ambula tory Pharmacy Gender identity Ambulator y Pharmacy This section is an empty soc ial history section. DoD Assessment and Plan Combined list of future care activities from Department of Defense and Veterans Affairs facilities (e.g., assessment and plan notes, appointments, orders, and referrals). Additional future care activities may be listed in the Plan of Care section. 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 Patient s PHAQ responses suggest Routine i tems requiring action. 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 1. 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 Retention Waiver: Y es ALC C-1 for Asthma Profile: Y es ALC code Medications: Medication List Active Medications Prescribed albuterol: 1 puff(s), Inhale, every 6 hr, PRN: congestion, 8.5 g, 0 Refill(s). Medications Inactivated in the Last 72 Hours No medications found. Allergies: No Known Allergies Does home service consultant need Annual Mental Health review? Y ES will notify home service consultant to contact Irene to complete. VA Disability Rating: No If, Yes please update below. Field Control Inspector PHAQ review note: No concerns noted. 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 No current civilian care. Will request updated notes for his asthma management. Overall health as excellent. PHAQ ready for PCM review and signature. Extracted from:Title: Office Clinic Note Author: BON AMBRIZ Date: 02/29/24 1. E xercise induced bronchospasm He has no symptoms, no need for any use of inhaler for 2 years. His PFT is normal. He has an inhaler available in case it is needed. He is at low risk. From my perspective he is cleared hot. 2. W carlos coat hypertension This appears completely resolved and is included here only for historic purposes. He is normotensive since losing weight a few years ago and maintaining a healthy diet. Orders: albuterol(Albuterol (Eqv-ProAir HFA) 90 mcg/inh inhalation aerosol), 1 puff(s), Inhale, every 6 hr, PRN congestion, # 8.5 g, 0 total refill(s), Acute, Other Reason (Rx) [External Rx] Extracted from:Title: Ambulatory Patient Education Author: BON AMBRIZ Date: 02/29/24 Extracted from:Title: Vital signs and PFT Author: ALVERTO MASCORRO Date: 02/29/24 Member is present for his PFT and full vitals. 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 Patient s PHAQ responses suggest Routine i tems requiring action. Retention Waiver: Y precious ALC C-1 until 21 Jun 2025 for Asthma Profile: _ Permanent no run/walk for asthma Medications: Medication List Active Medications No Active Medications Found Medications Inactivated in the Last 72 Hours No medications found. Allergies: No Known Allergies Does home service consultant need Annual Mental Health review? Y [facility] Disability Rating: No If, Yes please update below. Field Control Inspector PHAQ review note: combat rifle crewmember has current ALC C-1 for asthma, he provided his updated notes March 2023. Will reach out to home service consultant as blood pressure is out of range to have him come in and discuss his blood pressure with a provider. Reports overall health as excellent and no pain. PHAQ ready for PCM review and signature. Addendum by JAMIL BURGESS on September 15, 2023 16:36 ANALYTICAL DATA MINER Talked to home service consultant about his blood pressure and he states he has documented white coat syndrome. He said his civilian PCM has noted this and requires him to monitor his blood pressure from home. His home blood pressure readings per home service consultant are good per his PCM. Do you want to recall home service consultant? 10/04/2024 [id number] MDG Functional Status Combined list of recent functional and cognitive assessments recorded at Department of Defense and Veterans Affairs (VA).VA Functional Wellington Measurement (FIM) Scale: 1 = Total Assistance (Subject = 0% +), 2 = Maximal Assistance (Subject = 25% +), 3 = Moderate Assistance (Subject = 50% +), 4 = Minimal Assistance (Subject = 75% +), 5 = Supervision, 6 = Modified Wellington (Device), 7 = Complete [place] (Timely, Safely). Assessment Date/Time Source Assessment Type Assessment Skill Assessment Score Assessment Details No data available for this section
[2024-10-04 12:53] VITALS: BP 146/95; PULSE 99; RESP 16; TEMP 36.1; O2SAT 99
--- NOTE | 2024-10-04 13:03 | P.PNAN_ITS ---
Anes - Initial Pre Proc Eval Procedure: Operation Date: 10/04/24 14:00 Proposed Procedures p Colonoscopy - Cornel Gonzales MD Date/Time: 10/04/24 13:03 Surgeon: Cornel Gonzales MD Pre Op Diagnosis: fecal abnormalities Patient Data Age: 54 Gender: M Height: 1.93 m Weight: 103.8 kg Last Vital Signs Temp 36.1 C L 10/04/24 12:53 Pulse 99 10/04/24 12:53 Resp 16 10/04/24 12:53 BP 146/95 H 10/04/24 12:53 Pulse Ox 99 10/04/24 12:53 O2 Del Method Room Air 10/04/24 12:53 Allergies Allergy/AdvReac Type Severity Reaction Status Date / Time No Known Allergies Allergy Verified 10/04/24 12:50 Home Medications ?Medication ?Instructions ?Recorded ?Confirmed ?Type albuterol sulfate 90 mcg/actuation 2 puff inhalation Q4H PRN 03/02/21 09/20/24 Rx aerosol inhaler (Ventolin HFA) shortness of breath or wheezing #8.5 grams sildenafil 100 mg tablet (Viagra) 100 mg PO DAILY PRN sexual 06/25/24 10/04/24 Rx activity #30 tabs Patient hx anesthesia problems: none Family hx anesthesia problems: none Results Review: All pre-operative results and documents have been reviewed as part of the pre- operative evaluation. [facility] Past Medical History Medical History BMI 28.0-28.9,adult Acute pharyngitis, unspecified (08/30/18) Diarrhea in adult patient Dietary counseling and surveillance (04/05/17) Elevated ALT measurement Elevated fasting glucose Encounter for screening for lipoid disorders Encounter for screening for malignant neoplasm of prostate Exercise induced bronchospasm HTN (hypertension), benign Hemangioma of liver Liver lesion Mixed hyperlipidemia Serum calcium elevated Skin tag Strep pharyngitis Family History Family History Father Diabetes mellitus Mother No problems noted. Sibling No problems noted. Social History Social History Smoking packs per day: 1.5 Smoking cigarettes per day: 30.0 Years smoked: 19 Smoking pack-years: 28.50 Smoking status: Former smoker Tobacco type: cigarettes Second hand tobacco smoke exposure: No Alcohol intake: current Drinks per week: 2 Alcohol use details: rarely Substance use: never Substance use type: does not use Lack of Transportation: No Lack of Food: Never True Current Housing: I Have Housing Concerned About Future Housing: No Difficulty Paying Gas/Electric Bills: No Difficulty Paying for Meds: No Currently Unemployed: No Education: Associate Degree Difficulty w/ Childcare or Family Care: No Living arrangements: with family Occupation/Education: occupation Additional occupation/education comments: [employer] Gender identity (if verbalized by the patient): Male Spiritual care concerns: No Anes - Eval Final PreProcedure Day of Procedure 10/04/24 13:03 Patient weight: overweight Heart: regular rate and rhythm Lungs: clear to auscultation Airway: Mallampati scale class II Neurological: alert and oriented Last oral intake: >/= 8 hours ASA classification: II Emergent: no Anesthetic plan: proceed Anesthesia type and monitoring: general GIVS and standard monitoring Results Review: All pre-operative results and documents have been reviewed as part of the pre- operative evaluation. Informed Consent: The patient's anesthetic plan and its attendant risks and benefits were discussed with the patient/family/POA. Questions were solicited and answers provided to the satisfaction of the patient/family/POA.
[2024-10-04] MEDS: LACTATED RINGERS 1,000 ML 150 ML IV CONT (13:06)
--- NOTE | 2024-10-04 14:21 | P.HP_ITS ---
History of Present Illness History of Present Illness Consent: Risks, benefits, and alternatives have been discussed and questions answered. Patient agrees to proceed with procedure. Chief complaint: fecal abnormalities Narrative: Bridger Morejon is a 54 year old male here for first colonoscopy, + cologuard Review of Systems Review of Systems: All systems reviewed & are unremarkable except as noted in HPI and below PMFSH Past Medical History Medical History BMI 28.0-28.9,adult Acute pharyngitis, unspecified (08/30/18) Diarrhea in adult patient Dietary counseling and surveillance (04/05/17) Elevated ALT measurement Elevated fasting glucose Encounter for screening for lipoid disorders Encounter for screening for malignant neoplasm of prostate Exercise induced bronchospasm HTN (hypertension), benign Hemangioma of liver Liver lesion Mixed hyperlipidemia Serum calcium elevated Skin tag Strep pharyngitis Family History Family History Father Diabetes mellitus Mother No problems noted. Sibling No problems noted. Social History Social History Smoking packs per day: 1.5 Smoking cigarettes per day: 30.0 Years smoked: 19 Smoking pack-years: 28.50 Smoking status: Former smoker Tobacco type: cigarettes Second hand tobacco smoke exposure: No Alcohol intake: current Drinks per week: 2 Alcohol use details: rarely Substance use: never Substance use type: does not use Lack of Transportation: No Lack of Food: Never True Current Housing: I Have Housing Concerned About Future Housing: No Difficulty Paying Gas/Electric Bills: No Difficulty Paying for Meds: No Currently Unemployed: No Education: Associate Degree Difficulty w/ Childcare or Family Care: No Living arrangements: with family Occupation/Education: occupation Additional occupation/education comments: [employer] Gender identity (if verbalized by the patient): Male Spiritual care concerns: No Meds Home Medications and Allergies Home Medications ?Medication ?Instructions ?Recorded ?Confirmed ?Type albuterol sulfate 90 mcg/actuation 2 puff inhalation Q4H PRN 03/02/21 09/20/24 Rx aerosol inhaler (Ventolin HFA) shortness of breath or wheezing #8.5 grams sildenafil 100 mg tablet (Viagra) 100 mg PO DAILY PRN sexual 06/25/24 10/04/24 Rx activity #30 tabs Allergies Allergy/AdvReac Type Severity Reaction Status Date / Time No Known Allergies Allergy Verified 10/04/24 12:50 Vital Signs Vital Signs - 24 hr 10/04/24 12:53 Temperature 97.0 F L Pulse Rate 99 Respiratory Rate 16 Blood Pressure 146/95 H Pulse Oximetry 99 Oxygen Delivery Room Air Exam Const: General: comfortable and no acute distress HENMT: Face/Nose/Sinus: Normal nares present Eyes: General: appearance normal, both eyes and all related structures Neck: Neck: no JVD Resp: Auscultation: clear to auscultation bilaterally Cardio: Rate: regular rate Rhythm: regular rhythm GI: Inspection: non-distended GI Palp: Yes Soft to palpation Skin: General skin exam: normal color Neuro: General: gait normal Speech: normal speech Extrem: General: normal to inspection Psych: Mental Status: mental status grossly normal Assessment and Plan Assessment and plan (1) Positive colorectal cancer screening using Cologuard test: Code(s): R19.5 - Other fecal abnormalities Status: Acute Assessment and Plan: colonoscopy
[2024-10-04 14:47] VITALS: BP 108/62; PULSE 76; RESP 21; O2SAT 97
[2024-10-04 14:57] VITALS: BP 108/62; PULSE 69; RESP 22; O2SAT 97
[2024-10-04 15:07] VITALS: BP 111/65; PULSE 70; RESP 22; O2SAT 99
== END 2024-10-04 15:18 | disposition home or self-care (01) ==
PROVIDERS: PCP Family Medicine; Referring Provider Nurse Practitioner Family; Visit Provider Internal Medicine Gastroenterology
PROC: 0DJD8ZZ Inspection of Lower Intestinal Tract, Via Natural or Artificial Opening Endoscopic (ICD-10-PCS; CPT 45378; principal; 2024-10-04 14:00)
DX: D12.3 Benign neoplasm of transverse colon (principal); D12.4 Benign neoplasm of descending colon; K64.8 Other hemorrhoids; I10 Essential (primary) hypertension; E78.2 Mixed hyperlipidemia; J45.990 Exercise induced bronchospasm; Z79.51 Long term (current) use of inhaled steroids; Z87.891 Personal history of nicotine dependence
CPT/HCPCS: 45385; 88305; J2003; J2704; J7120